=== PATIENT | female | born 1955 | race Hispanic/Latino ===

== ENCOUNTER 2017-07-09 20:22 | Emergency (ER) | payer OTHER ==
[~2017-07-09] VITALS: Ht 154.9 cm; Wt 118.6 kg
[~2017-07-09 20:22] MED LIST: LORA-302 PO; OLME20TA3
[2017-07-09 20:31] VITALS: PULSE 77; RESP 16; O2SAT 100
--- NOTE | 2017-07-09 21:31 | ED.REPORT ---
HPI-Abd Pain F 40 and Over Date of Service Jul 09, 2017 ED Provider: Chicho Guzmán MD The patient is a 61 year old with a history of HTN, kidney stones, and gallbladder polyps presenting to the ED from Urgent Care complaining of right lower back pain onset 3 days ago. She claims that the pain started off as mild in severity then progressively worsened. Associated symptoms include hematuria, constipation, and dyspnea with inspiration. Denied symptoms include nausea, vomiting, fever, black stool, diarrhea, or cough. Nursing Notes Stated Complaint: SENT FROM URGENT CARE Chief Complaint: Female Abdominal Pain Nursing Notes Reviewed: Yes Allergies: Coded Allergies: latex (Verified Allergy, Unknown, WHELTS/LOCAL REACTION ONLY, 08/08/09) hydrocodone bitartrate (Verified Adverse Reaction, Mild, nausea and dizzy , 04/21/13) Uncoded Allergies: PLASTIC (Allergy, Unknown, WHELTS/LOCAL REACTION ONLY, 05/14/06) Scheduled Famotidine (Pepcid) 20 Mg Tablet 20 MG PO BID Methocarbamol (Robaxin-750) 750 Mg Tablet 750 MG PO QID Scheduled PRN Lorazepam-Expunged Drug, Do Not Renew! (Lorazepam-Expunged Drug, Do Not Renew!) 0.5 Mg Tablet 0.5 MG PO TID PRN PRN Naproxen (Naprosyn) 500 Mg Tablet 500 MG PO BID PRN PRN For Pain Miscellaneous Medications Olmesartan-Expunged Drug, Do Not Renew! (Benicar-Expunged Drug, Do Not Renew!) 20 Mg Tablet General Time Seen by MD: 21:30 Chief Complaint Flank pain right Hx Obtained From: Patient Arrived By: Walk-in Sudden in Onset?: Yes Onset Occurred: 3 days ago Symptom Duration: Since onset Progression since Onset: Gradually worsening Location: : Flank right Quality: Painful Recent Healthcare: No recent doctor visit, No recent hospitalization Similar Sx Previous: Yes Risk Factors )( AAA Risk Stratification Risk factors reviewed Past Medical History Past Medical History HTN Kidney stones Gallbladder polyps Osteroarthritis; due for knee replacements Smoking History Unknown if Ever Smoker Ambulatory Status Independent Review of Systems Dyspnea with inspiration Constitutional: Denies: Fever Respiratory: Denies: Non-productive cough GI: Reports: Constipation, Denies: Bloody/tarry stool, Diarrhea, Nausea, Vomiting Female: Reports: Flank pain (right flank), Hematuria Complete sys rev & neg: except as marked. Physical Exam Vital Signs Vital Signs (First) Date Time Temp Pulse Resp B/P Pulse Ox O2 Delivery O2 Flow Rate FiO2 07/09/17 20:31 37.2 77 16 100 Room Air 07/09/17 23:45 129/76 Initial VS: Reviewed, Vital signs normal Head / Eyes: Atraumatic, Normocephalic ENT: Mucous membranes moist Neck: Supple Lymphatic: No lymphadenopathy Extremities: Vascular intact, Neuro intact Skin: Warm, Dry Neurologic: Alert, Oriented Psychiatric: Mood/affect normal, Behavior normal General/Constitutional: Awake, Alert, No acute distress, Well hydrated Respiratory / Chest: Atraumatic, Breath sounds NL, Breath sounds = bilat, No respiratory distress Cardiovascular: Heart rate NL, Regular rhythm, Heart sounds NL Abdomen: Atraumatic, Soft, Non-tender Belly is obese No organomegaly Back: Atraumatic, Inspection NL Point tenderness on lower right back Interpretation & Diagnostics Lab Results Interpretation Result Diagram: 07/09/17212907/09/172129 Test 07/09/17 21:19 07/09/17 21:30 07/09/17 21:44 Hold Urine Received (Received) White Blood Count 8.6th/mm3 (3.8-10.1) Red Blood Count 4.71mil/mm3 (3.90-5.20) Hemoglobin 12.6g/dL (12.0-15.6) Hematocrit 39.6% (35.0-46.0) Mean Corpuscular Volume 84.1fL (81-100) Mean Corpuscular Hemoglobin 26.8pg (27.0-35.0) Mean Corpuscular Hemoglobin Concent 31.8% (32.0-37.0) Red Cell Distribution Width 13.9% (12.3-15.4) Platelet Count 239bil/L (150-400) Neutrophils (%) (Auto) 48.7% (40-74) Lymphocytes (%) (Auto) 39.0% (14-46) Monocytes (%) (Auto) 8.9% (4-12) Eosinophils (%) (Auto) 2.6% (0-5) Basophils (%) (Auto) 0.4% (0-3) Sodium Level 138mEq/L (134-144) Potassium Level 4.2mEq/L (3.5-5.2) Chloride Level 102mEq/L (97-108) Carbon Dioxide Level 24mmol/L (18-29) Blood Urea Nitrogen 24mg/dL (6-24) Creatinine 1.00mg/dL (0.57-1.00) Estimat Glomerular Filtration Rate 81mL/min (>59) Glucose Level 110mg/dL (60-99) Calcium Level 8.8mg/dL (8.5-10.1) Magnesium Level 2.0mg/dL (1.6-2.6) Total Bilirubin 0.2mg/dL (0.0-1.2) Aspartate Amino Transf (AST/SGOT) 19U/L (0-50) Alanine Aminotransferase (ALT/SGPT) 15U/L (0-32) Alkaline Phosphatase 156U/L (25-165) Total Protein 8.2g/dL (6.4-8.4) Albumin 4.0g/dL (3.4-5.0) Lipase 44U/L (13-60) Hold Priest Top Tube Received (Received) Urine Color Yellow (YELLOW) Urine Appearance Hazy (CLEAR,HAZY) Urine pH 5.5 (5.0-8.0) Urine Specific [place] 1.020 (1.003-1.035) Urine Protein 30mg/dL (NEG,TRACE) Urine Glucose (UA) Negativemg/dL (NEGATIVE) Urine Ketones Negativemg/dL (NEGATIVE) Urine Occult Blood Trace (NEGATIVE) Urine Nitrite Negative (NEGATIVE) Urine Bilirubin Negative (NEGATIVE) Urine Urobilinogen Normalmg/dL (NORMAL) Urine Leukocyte Esterase Negative (NEGATIVE) Urine RBC 0-2/hpf (0-2) Urine WBC 0-5/hpf (0-5) Urine Epithelial Cells None/hpf (NONE-MOD) Urine Crystals None seen (NONE SEEN) Urine Bacteria None/hpf (NONE-FEW) Urine Hyaline Casts None/lpf (NONE) Urine Granular Casts None seen (NONE SEEN) Urine Waxy Casts None seen (NONE SEEN) Urine Red Blood Cell Casts None seen (NONE SEEN) Urine White Blood Cell Casts None seen (NONE SEEN) Urine Mucus None seen (None Seen) Urine Trichomonas None seen (NONE SEEN) Urine Yeast None (NONE SEEN) Urinalysis Comment None Urine Culture Reflexed Not indicated CT Abd / Pelvis Interpretation CONCLUSION: No acute intra-abdominal abnormality. Fatty liver. This report was transmitted to the emergency room at 07/09/2017 - 11:01:50 PM PDT. Study type: Abdom CT oral contrast Interpretation / Wet Read by: Interpret - Radiologist Re-Eval/Medical Decision Med Decision/Clinical Course 61-year-old presents with right sided flank pain vaguely similar she thinks to kidney stone pain in the past, but not of sudden onset, and without any other supporting findings including a negative CT. She has elicitable point tenderness on the muscles of her back fairly superficially. This appears to be the source of her pain, as there is no evidence of stone or cholecystitis. She is provided with Robaxin to supplement her ibuprofen. ECP. Return if worse. Re-Evaluation/Progress : Time of Eval: 23:25 Re-Evaluation/Progress Note: Patient rechecked. Discussed normal scan results, plan to give muscle relaxer, and plan to discharge. The patient understands and agrees with the plan. All questions addressed at this time. Counseled Regarding: Diagnosis, Lab results, Need for follow-up, When/why to return to ED Discharge & Departure Primary Impression: Back pain Back pain location: back pain in unspecified location Chronicity: unspecified Back pain laterality: unspecified Qualified Code: M54.9 - Dorsalgia, unspecified Disposition: Home Discharge Condition All VS Reviewed: Yes Condition: Improved Patient Instructions: Back Pain (ED), Muscle Spasm (ED) Additional Instructions: We find no evidence of kidney stone or gallbladder trouble or other serious cause for your pain. The fact that we can elicit this pain with direct palpation on your back muscles supports the notion that this is related to the muscles and not to some deeper organ. Begin Robaxin three or four times daily. Substitute Naprosyn for ibuprofen, taken twice daily with food. Take Pepcid twice daily as larger taking the Naprosyn. Follow-up with your doctor in the office. Return if any immediate issues. Referrals: Yolanda Tellez MD (PCP) [place] Attestation Portions of this note were transcribed by Michael Morgan. I, Dr. Guzmán personally performed the history, physical exam and medical decision-making; I reviewed and confirmed the accuracy of the information in the transcribed note. Signed by: Hayde Andrew, 07/09/2017 copies to: Yolanda Tellez MD, Christopher W MD Jul 09, 2017 21:31 Jul 09, 2017 21:42
[2017-07-09 21:33] LABS: BASOPHILS % (AUTO) 0.4 % (0-3); EOSINOPHILS % (AUTO) 2.6 % (0-5); MONOCYTES % (AUTO) 8.9 % (4-12); Mean Corpuscular Hemoglobin 26.8 pg (27.0-35.0); Mean Corpuscular Volume 84.1 fL (81-100); NEUTROPHILS % (AUTO) 48.7 % (40-74); Platelet Count 239 bil/L (150-400)
[2017-07-09] MEDS ORDERED: 0.9% Sodium Chloride 1,000 ML IV ONE (21:40)
[2017-07-09] MEDS ORDERED: Ketorolac 15 mg/mL Inj IVPUSH ONE (21:40)
[2017-07-09] MEDS ORDERED: Famotidine 10 mg/mL 2 mL Inj IVPUSH ONE (21:40)
[2017-07-09] MEDS ORDERED: Ondansetron 2 mg/mL 2 mL Inj IVPUSH ONE (21:40)
[2017-07-09 21:48] LABS: APPEARANCE,URINE HAZY (CLEAR,HAZY); COLOR,URINE YELLOW (YELLOW); PH,URINE 5.5 (5.0-8.0)
[2017-07-09 21:49] LABS: OCCULT BLOOD,URINE TRACE (NEGATIVE); UROBILINOGEN,URINE NORMAL (NORMAL)
[2017-07-09] MEDS ORDERED: Famotidine 20 mg/50 mL NS IV ONE (21:55)
[2017-07-09] MEDS ORDERED: METH-313 PO (23:32)
[2017-07-09] MEDS ORDERED: NAPR500T PO (23:32)
[2017-07-09] MEDS ORDERED: FAMO20T PO (23:32)
[2017-07-09 23:45] VITALS: BP 129/76; PULSE 74; RESP 16; O2SAT 100
--- NOTE | 2017-07-10 07:46 | DRSVH ---
PROCEDURE: CT ABDOMEN AND PELVIS WITH CONTRAST ([id number]) INDICATIONS: 61 year-old woman with right flank pain, hx gallbladder polyps, kidney stone TECHNIQUE: After the administration of intravenous contrast, 5 mm thick sections acquired from the diaphragm to the symphysis. 5 mm coronal and sagittal reformats were acquired. For radiation dose reduction, the following was used: automated exposure control, adjustment of mA and/or kV according to patient siz e. COMPARISON: [facility], CT, KUB - CT (ABD/PEL W/O CONT), 08/25/2010, 13:11. [facility], [place], PET/CT NECK TO MID THIGH, 01/08/2013, 8:55. [facility], CT, CHEST W/O C ONTRAST, 01/29/2013, 8:59. [facility], CT, ABD/PELVIS W/CON (PNL), 11/27/2012, 10:49. FINDINGS: Image quality: Excellent. ABDOMEN: Lung bases: Lung bases are clear. Heart size is normal. Solid organs: There is a 1.6 cm loose and is nodular in Central liver, unchanged. Liver and spleen a re normal in size and enhancement. Gallbladder is normal. Biliary system is non dilated. Pancreas enhances normally. No adrenal nodules. Tiny 1-2 mm punctate calcifications are noted in kidneys jacque aterally. Kidneys demonstrate normal size and enhancement, without hydronephrosis. Peritoneum and bowel: Bowel loops demonstrate normal wall thickness and caliber. No free fluid or a ir. Nodes and vessels: No retroperitoneal or mesenteric adenopathy by size criteria. Aorta and inferior vena cava are normal in size. Miscellaneous: Small fat-containing periumbilical hernia is noted. PELVIS: Genitourinary: Bladder wall thickness is normal. Miscellaneous: No inguinal hernias or adenopathy. Bones: No suspicious bony lesions. No vertebral body compression fractures. IMPRESSION: 1. Tiny punctate calcifications in kidneys bilaterally. No hydronephrosis. 2. A 1.6 cm low density nodule in the central liver appears unchanged, probably a hemangioma or cyst. 3. Small fat-containing periumbilical hernia. 4. Gallbladder polyps is not visualized on CT. Ultrasound followup suggested. Dictated by: Fuentes oRmo M.D. on 07/10/2017 at 7:38 Approved by: Fuentes Romo M.D. on 07/10/2017 at 7:44
== END 2017-07-09 23:45 | disposition home or self-care (01) ==
LOC: SED 20:22
DX: M54.5 Low back pain (principal); R31.9 Hematuria, unspecified; K59.00 Constipation, unspecified; R06.00 Dyspnea, unspecified; I10 Essential (primary) hypertension; Z87.442 Personal history of urinary calculi; Z88.5 Allergy status to narcotic agent; Z91.040 Latex allergy status
CPT/HCPCS: 36415; 74177; 80053; 81000; 83690; 83735; 85025; 96361; 96374; 96375; 99285; J1885; J2405; J3490; J7030; Q9967